=== PATIENT | male | born 1980 | race Caucasian/White ===

== ENCOUNTER 2017-06-20 18:49 | Inpatient (IN) | payer MEDICARE, MEDICAID ==
[2017-06-20 18:50] VITALS: BMI 26.9
--- NOTE | 2017-06-20 19:15 | C.PDOC ---
History Of Present Illness 36 year old male was sent to the ER by police for a psych evaluation. he has a past history of Undifferentiated Schizophrenia and attends [facility]. He states he is compliant with his medication. Patient states a man who is the gun dealer who sold his father the gun he used to kill himself after his mother was murdered has been following him and harassing him. He states he called the police who said they would investigate but sent him to the ER for an evaluation in the meantime. Patient states he is not paranoid and denies any physical complaints. Time Seen by Provider: 06/20/17 19:02 Chief Complaint (Nursing): Psychiatric Evaluation History Per: Patient History/Exam Limitations: no limitations Onset/Duration Of Symptoms: Days Current Symptoms Are (Timing): Still Present Suicide/Self Injury Attempted (Context): None Modifying Factor(s): None Associated Symptoms: denies: Depression, Suicidal Thoughts Involuntary Hold By: None Recent travel outside of the [place]: No Past Medical History Reviewed: Historical Data, Nursing Documentation, Vital Signs Vital Signs: Last Vital Signs Temp 98.4 F 06/20/17 18:52 Pulse 93 H 06/20/17 18:52 Resp 18 06/20/17 18:52 BP 125/88 06/20/17 18:52 Pulse Ox 98 06/20/17 20:01 - Medical History PMH: Bipolar Disorder, Depression, Hypercholesterolemia, Schizophrenia - [facility] Procedures INDIVID PSYCHOTHERAP NEC (11/09/13) OTHER GROUP THERAPY (11/09/13) PSYCHIAT DRUG THERAP NEC (09/23/13) Family History: States: Unknown Family Hx - Social History Hx Tobacco Use: Yes Hx Alcohol Use: No Hx Substance Use: No - Immunization History Hx Tetanus Toxoid Vaccination: No Hx Influenza Vaccination: Yes (2017) Hx Pneumococcal Vaccination: No Review Of Systems Constitutional: Negative for: Fever, Chills Cardiovascular: Negative for: Chest Pain, Palpitations Respiratory: Negative for: Cough, Shortness of Breath Gastrointestinal: Negative for: Nausea, Vomiting Psych: Negative for: Depression, Suicidal ideation Physical Exam - Physical Exam Appears: Non-toxic, No Acute Distress Skin: Normal Color, Warm, Dry Head: Atraumatic, Normacephalic Eye(s): bilateral: Normal Inspection Oral Mucosa: Moist Chest: Symmetrical, No Tenderness Cardiovascular: Rhythm Regular Respiratory: Normal Breath Sounds, No Rales, No Rhonchi, No Wheezing Gastrointestinal/Abdominal: Soft, No Tenderness Neurological/Psych: Oriented x3, Normal Speech ED Course And Treatment - Laboratory Results Result Diagrams: 06/20/17 19:36 06/20/17 19:36 Lab Interpretation: No Acute Changes O2 Sat by Pulse Oximetry: 98 (Room air) Pulse Ox Interpretation: Normal Progress Note: Blood work and urinalysis ordered. Patient is medically cleared for psychiatric admission. Reevaluation Time: 21:53 Reassessment Condition: Unchanged (Patient agrees to inpatient psychiatric admission for uncontrolled schizophrenia) Disposition - Disposition Disposition: HOSPITALIZED Disposition Time: 21:54 Condition: STABLE - POA Present On Arrival: None - Clinical Impression Clinical Impression: Schizophrenia - Scribe Statement The provider has reviewed the documentation as recorded by the Scribe Joel Warner All medical record entries made by the Scribe were at my direction and personally dictated by me. I have reviewed the chart and agree that the record accurately reflects my personal performance of the history, physical exam, medical decision making, and the department course for this patient. I have also personally directed, reviewed, and agree with the discharge instructions and disposition.
[2017-06-20 19:39] LABS: BASO # 0.1 K/uL (0.0-0.2); BASO % 0.9 % (0.0-2.0); EOS # 0.3 K/uL (0.0-0.7); EOS % 2.1 % (0.0-4.0); HEMOGLOBIN 14.8 g/dL (12.0-18.0); LYMPH % 28.6 % (20.0-40.0); MEAN CELL VOLUME 86.1 fL (80.0-94.0); MEAN CORPUSCULAR HGB CONC 34.9 g/dL (33.0-37.0); MEAN PLATELET VOLUME 7.7 fL (7.2-11.7); MONO # 0.9 K/uL (0.0-0.8); MONO % 6.3 % (0.0-10.0); NEUT # 8.8 K/uL (1.8-7.0); NEUT % 62.1 % (50.0-75.0); RBC 4.95 Mil/uL (4.40-5.90); RED CELL DISTRIBUTION WIDTH 12.7 % (11.5-14.5); WHITE BLOOD COUNT 14.1 K/uL (4.8-10.8)
[2017-06-20 19:48] LABS: URINE BILIRUBIN NEGATIVE (NEGATIVE); URINE BLOOD NEGATIVE (NEGATIVE); URINE CLARITY Clear (Clear); URINE COLOR Colorless (YELLOW); URINE GLUCOSE (UA) NORMAL (Normal); URINE LEUKOCYTE ESTERASE NEG Leu/uL (Negative); URINE PROTEIN NEGATIVE (NEGATIVE); URINE UROBILINOGEN NORMAL mg/dL (0.2-1.0)
[2017-06-20 19:51] LABS: ALB/GLOB RATIO 1.4 (1.0-2.1); ALBUMIN 4.6 g/dL (3.5-5.0); ALT/SGPT 45 U/L (21-72); AST/SGOT 23 U/L (17-59); BLOOD UREA NITROGEN 6 mg/dL (9-20); CALCIUM 8.8 mg/dl (8.6-10.4); GFR AFRICAN-AMERICAN > 60; GFR NON-AFRICAN AMERICAN > 60
[2017-06-20 19:55] LABS: BARBITURATES, UR NEGATIVE (NEGATIVE); BENZODIAZEPINES, UR NEGATIVE (NEGATIVE); OPIATES, UR NEGATIVE (NEGATIVE); PHENCYCLIDINE, UR NEGATIVE (NEGATIVE)
--- NOTE | 2017-06-21 01:07 | PCM.BM ---
<Adelaide Orr - Last Filed: 06/21/17 01:05> Treatment Plan Problems - Problems identified on initial assessmt Paranoid delusions Date Initiated: 06/21/17 Time Initiated: 01:07 Assessment reference: NA Status: Active Anxiety Date Initiated: 06/21/17 Time Initiated: 01:09 Assessment reference: NA Status: Active Treatment assets and liabiliti Patient Assests: cooperative, ADL independent, physically healthy, cognitively intact Patient Liabilities: poor support system - Milieu Protocol Maintain good personal hygiene: daily Encourage regular showers, daily Remind patient to perform daily oral care, daily Assist patient to perform ADL's Conduct patient checks and document Observation sheet: Q15 minutes Maintain personal safety: every shift Educate patient to report safety concerns to staff, every shift Monitor environment for contraband/sharps Medication safety: Monitor for expected outcome, potential side effects: every shift, Assess barriers to learning: every shift, Assess readiness for medication education: every shift <Lissett Brice - Last Filed: 06/22/17 11:47> Family Contact Family involvement: Famliy/SO not involved - Outside Agency Agency 1 Care involvment: Following patient during stay, Information-sharing Agency contact name: [facility] - Goals for Treatment Patient goals for treatment: "I [facility] to go back to [facility]." Discharge/Continuing Care - Education Needs Education Needs: Patient Medication, Patient Coping Skills - Discharge Discharge Criteria: Tolerates medication w/o severe side effects, Reduction of target symptoms Discharge to:: [facility] - Treatment Team Participation Discussed with Family/SO: No Was Patient/Family/SO present at Treatment Team Meeting: Yes <Camryn Luna - Last Filed: 06/22/17 11:49> - Diagnosis (1) Schizophrenia Status: Acute Interventions: 06/22/17 11:49 * Assess/adjust medications daily and /or as needed * See patient on an individual basis 7x/week to assess status of hallucinations * Discuss risks, benefits, side effects and alternatives of medications *
--- NOTE | 2017-06-21 23:27 | PCM.PSYCH ---
Initial Psychiatric Evaluation - Initial Psychiatric Evaluation Type of Admission: Voluntary Legal Status: Capacity Chief Complaint (in patient's own words): I was followed by a person. History of Present Illness and Precipitating Events: Patient is a 36 years old, single, unemployed, resident of [facility], with history of schizophrenia was brought to the ER by police due to auditory hallucinations and delusions. Patient with history of schizophrenia, reported compliant with treatment. Reported he was staying at [facility] where he saw an old person who was following him for last 2-3 days. Patient called the police. Patient reported that he called the police in the past for the same person as he is following him frequently. Patient has history of more than 9 psychiatric admissions. Denied any depression, sleep or appetite problems. Denied any previous or current suicidal ideations homicidal ideations or suicidal attempts. Patient denied any substance use. Smokes 1 pack of cigarettes daily and is requesting for nicotine patch. Patient was born in [place] has high school graduation. Not working. 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 Lives in [facility], on [facility]. Never and has no children. Current Medications: Active Medications Generic Name Dose Route Start Last Admin Trade Name Freq PRN Reason Stop Dose Admin Haloperidol 5 mg 06/21/17 13:45 Haldol PO Q6 PRN Agitation Hydroxyzine HCl 50 mg 06/20/17 23:32 06/21/17 09:47 Atarax PO 50 mg Q6 PRN Administration Anxiety Ibuprofen 400 mg 06/21/17 13:46 Motrin Tab PO Q6 PRN Pain, moderate (4-7) Nicotine 1 patch 06/21/17 10:00 06/21/17 09:47 Nicoderm Cq TD 1 patch DAILY MIMI Administration Risperidone 1 mg 06/21/17 18:00 06/21/17 17:16 Risperdal Tab PO 1 mg BID MIMI Administration Trazodone HCl 50 mg 06/20/17 23:30 06/21/17 21:21 Desyrel PO 50 mg HS PRN Administration Insomnia Past Psychiatric History - Past Psychiatric History Previous Treatment History: Inpatient History of Abuse: None reported History of ETOH/Drug Use: See HPI History of Family Illness: None report Pertinent Medical Hx (Current Medical&Sleep Prob, Allergies): Allergies Allergy/AdvReac Type Severity Reaction Status Date / Time No Known Allergies Allergy Verified 06/20/17 18:56 Benztropine [Cogentin] 1 mg PO DAILY 02/02/15 Risperidone [RisperDAL Consta] 37.5 mg IM 02/02/15 Risperidone [Risperdal] 3 mg PO DAILY 02/02/15 Simvastatin [Simvastatin] 40 mg PO DAILY 02/02/15 Review of Systems - Psychiatric Psychiatric: Auditory Hallucinations, Paranoia Mental Status Examination - Personal Presentation Personal Presentation: Looks stated age - Affect Affect: Blunted - Motor Activity Motor Activity: Calm
--- NOTE | 2017-06-23 14:45 | PCM.PYCHPN ---
Psychiatric Progress Note - Psychiatric Progress Note Patient seen today, length of contact: 15 min Patient Chief Complaint: I am feeling rayray Problems Identified/Issues Discussed: Patient seen and evaluated, chart reviewed and discussed with the nurse. Patient remained disorganized and internally preoccupied. Patient remained isolated, confined and withdrawn. Patient still appears paranoid and delusional. As per the staff last night he was talking to himself and yelling in his room. He is taking medication and denies any side effects. Symptoms are improving but he needs more time for stabilization. Supportive therapy and psychoeducation were given. Medication Change: Yes (increase risperdal) Medical Record Reviewed: Yes Mental Status Examination - Cognitive Function Orientation: Person, Place, Situation, Time Memory: Intact Attention: Poor Concentration: Poor Association: Loose Fund of Knowledge: Poor - Mood Mood: Anxious - Affect Affect: Blunted - Speech Speech: Soft - Formal Thought Process Formal Thought Process: Hallucinations, Delusions, Paranoia, Loosening of associations - Suicidal Ideation Suicidal Ideation: No - Homicidal Ideation Homicidal Ideation: No Goal/Treatment Plan - Goal/Treatment Plan Need for Continued Stay: Severe depression anxiety, Severe functional impairment Progress Toward Problem(s) and Goals/Treatment Plan: Schizophrenia paranoid type continuous CBT Psychoeducation Supportive therapy, group therapy, individual therapy Risperdal 2 am PO BID Cogentin 1 mg by mouth twice a day Trazodone 50 mg by mouth daily at bedtime - Smoking Cessation Smoking Cessation Initiated: No
--- NOTE | 2017-06-24 11:13 | PCM.PYCHPN ---
Psychiatric Progress Note - Psychiatric Progress Note Patient seen today, length of contact: 15 min Patient Chief Complaint: I am feeling rayray Problems Identified/Issues Discussed: Patient seen and evaluated, chart reviewed and discussed with the nurse. Patient remained isolated, confined and withdrawn. Patient still appears paranoid and delusional. Patient remained disorganized and internally preoccupied. As per the staff last night he was talking to himself. He is taking medication and denies any side effects. Symptoms are improving but he needs more time for stabilization. Supportive therapy and psychoeducation were given. Medication Change: Yes (increase risperdal, increase gabapentin) Medical Record Reviewed: Yes Mental Status Examination - Cognitive Function Orientation: Person, Place, Situation, Time Memory: Intact Attention: WNL Concentration: Poor Association: Loose Fund of Knowledge: Poor - Mood Mood: Anxious - Affect Affect: Blunted - Speech Speech: Soft - Formal Thought Process Formal Thought Process: Hallucinations, Delusions, Paranoia, Loosening of associations - Suicidal Ideation Suicidal Ideation: No - Homicidal Ideation Homicidal Ideation: No Goal/Treatment Plan - Goal/Treatment Plan Need for Continued Stay: Severe depression anxiety, Severe functional impairment Progress Toward Problem(s) and Goals/Treatment Plan: Schizophrenia paranoid type continuous CBT Psychoeducation Supportive therapy, group therapy, individual therapy Risperdal 2 mg PO daily Risperdal 3 mg PO HS Cogentin 1 mg by mouth twice a day Gabapentin 300 mg by mouth twice a day Trazodone 50 mg by mouth daily at bedtime - Smoking Cessation Smoking Cessation Initiated: No
--- NOTE | 2017-06-25 18:12 | PCM.PYCHPN ---
Psychiatric Progress Note - Psychiatric Progress Note Patient seen today, length of contact: 15 min Patient Chief Complaint: I am feeling rayray Problems Identified/Issues Discussed: Patient seen and evaluated, chart reviewed and discussed with the nurse. Patient still appears paranoid and delusional. Patient remained disorganized and internally preoccupied. Patient remained isolated, confined and withdrawn. He was found talking to himself. He is taking medication and denies any side effects. Symptoms are improving but he needs more time for stabilization. Supportive therapy and psychoeducation were given. Medication Change: Yes (increase risperdal) Medical Record Reviewed: Yes Mental Status Examination - Cognitive Function Orientation: Person, Place, Situation, Time Memory: Intact Attention: WNL Concentration: Poor Association: Loose Fund of Knowledge: Poor - Mood Mood: Anxious - Affect Affect: Blunted - Speech Speech: Soft - Formal Thought Process Formal Thought Process: Hallucinations, Delusions, Paranoia, Loosening of associations - Suicidal Ideation Suicidal Ideation: No - Homicidal Ideation Homicidal Ideation: No Goal/Treatment Plan - Goal/Treatment Plan Need for Continued Stay: Severe depression anxiety, Severe functional impairment Progress Toward Problem(s) and Goals/Treatment Plan: Schizophrenia paranoid type continuous CBT Psychoeducation Supportive therapy, group therapy, individual therapy Risperdal 2 mg PO daily Risperdal 4 mg PO HS Cogentin 1 mg by mouth twice a day Gabapentin 300 mg by mouth twice a day Trazodone 50 mg by mouth daily at bedtime - Smoking Cessation Smoking Cessation Initiated: No
--- NOTE | 2017-06-26 23:40 | PCM.PYCHPN ---
Psychiatric Progress Note - Psychiatric Progress Note Patient seen today, length of contact: 15 min Patient Chief Complaint: I am feeling little better.' Problems Identified/Issues Discussed: Patient seen and evaluated, chart reviewed and discussed with the nurse. Patient appeared more organized and less internally preoccupied. However, he remained isolated, confined and withdrawn. He still appears paranoid and delusional. He is taking medication and denies any side effects. Symptoms are improving but he needs more time for stabilization. Supportive therapy and psychoeducation were given. Medication Change: Yes (increase risperdal) Medical Record Reviewed: Yes Mental Status Examination - Cognitive Function Orientation: Person, Place, Situation, Time Memory: Intact Attention: WNL Concentration: WNL Association: Loose Fund of Knowledge: Poor - Mood Mood: Anxious - Affect Affect: Blunted - Speech Speech: Soft - Formal Thought Process Formal Thought Process: Paranoia, Loosening of associations - Suicidal Ideation Suicidal Ideation: No - Homicidal Ideation Homicidal Ideation: No Goal/Treatment Plan - Goal/Treatment Plan Need for Continued Stay: Severe depression anxiety, Severe functional impairment Progress Toward Problem(s) and Goals/Treatment Plan: Schizophrenia paranoid type continuous CBT Psychoeducation Supportive therapy, group therapy, individual therapy Risperdal 2 mg PO daily Risperdal 4 mg PO HS Cogentin 1 mg by mouth twice a day Gabapentin 300 mg by mouth twice a day Trazodone 50 mg by mouth daily at bedtime - Smoking Cessation Smoking Cessation Initiated: No
--- NOTE | 2017-06-27 16:25 | PCM.PYCHPN ---
Psychiatric Progress Note - Psychiatric Progress Note Patient seen today, length of contact: 15 min Patient Chief Complaint: I'm feeling better. Problems Identified/Issues Discussed: Patient seen, chart reviewed, case discussed with the staff. Issues related to illness and treatment were discussed with the patient. Reported compliant with treatment with no adverse affects. Reported feeling better now. Patient was walking on the floor comfortably. Mood reported as okay. Affect appropriate. Awake alert oriented 3, no delusions, no auditory or visual hallucinations, no suicidal ideations or homicidal ideations at the time of evaluation. Aftercare discussed with the patient. Medical Problems: None reported Diagnostic Results: Reviewed DSM 5 Symptoms Update: Improving with treatment Medication Change: No Medical Record Reviewed: Yes Mental Status Examination - Cognitive Function Orientation: Person, Place, Situation, Time Memory: Intact Attention: WNL Concentration: WNL Association: WN Fund of Knowledge: [facility] Decription of patient's judgement and insights: Fair - Mood Mood: Anxious - Affect Affect: Blunted - Speech Speech: Soft - Formal Thought Process Formal Thought Process: No Impairment Psychotic Thoughts and Behaviors: None - Suicidal Ideation Suicidal Ideation: No - Homicidal Ideation Homicidal Ideation: No Goal/Treatment Plan - Goal/Treatment Plan Need for Continued Stay: Remain at risks for inpatient hospitalization, Discharge may exacerbated symptoms, Severe functional impairment Progress Toward Problem(s) and Goals/Treatment Plan: Patient education Supportive therapy Continue treatment as before Estimated Date of D/C: 06/29/17 - Smoking Cessation Smoking Cessation Initiated: Yes
--- NOTE | 2017-06-28 08:00 | PCM.PYCHPN ---
Psychiatric Progress Note - Psychiatric Progress Note Patient seen today, length of contact: 15 min Patient Chief Complaint: I am feeling rayray Problems Identified/Issues Discussed: Patient seen and evaluated, chart reviewed and discussed with the nurse. Patient appears more organized. Patient remained isolated, confined and withdrawn. Patient reports improvement in the paranoid and delusional. He is taking medication and denies any side effects. Symptoms are improving but he needs more time for stabilization. Supportive therapy and psychoeducation were given. Medication Change: No Medical Record Reviewed: Yes Mental Status Examination - Cognitive Function Orientation: Person, Place, Situation, Time Memory: Intact Attention: WNL Concentration: Poor Association: WNL Fund of Knowledge: Poor - Mood Mood: Anxious - Affect Affect: Blunted - Speech Speech: Soft - Formal Thought Process Formal Thought Process: Delusions, Paranoia, Loosening of associations - Suicidal Ideation Suicidal Ideation: No - Homicidal Ideation Homicidal Ideation: No Goal/Treatment Plan - Goal/Treatment Plan Need for Continued Stay: Remain at risks for inpatient hospitalization, Discharge may exacerbated symptoms, Severe functional impairment Progress Toward Problem(s) and Goals/Treatment Plan: Schizophrenia paranoid type continuous CBT Psychoeducation Supportive therapy, group therapy, individual therapy Risperdal 2 am PO BID Cogentin 1 mg by mouth twice a day Trazodone 50 mg by mouth daily at bedtime Estimated Date of D/C: 06/29/17
[2017-06-29 06:56] VITALS: RESP 18; O2SAT 96
--- NOTE | 2017-06-29 11:35 | PCM.PYCHPN ---
Psychiatric Progress Note - Psychiatric Progress Note Patient seen today, length of contact: 15 min Patient Chief Complaint: I am feeling rayray Problems Identified/Issues Discussed: Patient seen and evaluated, chart reviewed and discussed with the nurse. Patient appears more organized. Patient reports improvement in the paranoid and delusional. He is taking medication and denies any side effects. Symptoms are improving but he needs more time for stabilization. Supportive therapy and psychoeducation were given. Medication Change: No Medical Record Reviewed: Yes Mental Status Examination - Cognitive Function Orientation: Person, Place, Situation, Time Memory: Intact Attention: WNL Concentration: WNL Association: WNL Fund of Knowledge: WN - Mood Mood: Anxious - Affect Affect: Blunted - Speech Speech: Soft - Formal Thought Process Formal Thought Process: No Impairment - Suicidal Ideation Suicidal Ideation: No - Homicidal Ideation Homicidal Ideation: No Goal/Treatment Plan - Goal/Treatment Plan Need for Continued Stay: Remain at risks for inpatient hospitalization, Discharge may exacerbated symptoms, Severe functional impairment Progress Toward Problem(s) and Goals/Treatment Plan: Schizophrenia paranoid type continuous CBT Psychoeducation Supportive therapy, group therapy, individual therapy Risperdal 2 am PO daily Risperdal 4 mg by mouth daily at bedtime Cogentin 1 mg by mouth twice a day Trazodone 50 mg by mouth daily at bedtime Estimated Date of D/C: 06/29/17
--- NOTE | 2017-06-29 13:18 | PCM.BM ---
<MigueLissett Marcano - Last Filed: 06/29/17 13:18> Treatment Plan Problems - Problems identified on initial assessmt paranoid Date Initiated: 06/21/17 Time Initiated: 01:07 Assessment reference: NA Status: Active Paranoid delusions Date Initiated: 06/21/17 Time Initiated: 01:07 Assessment reference: NA Status: Active Anxiety Date Initiated: 06/21/17 Time Initiated: 01:09 Assessment reference: NA Status: Active Treatment assets and liabiliti Patient Assests: cooperative, ADL independent, physically healthy, cognitively intact Patient Liabilities: poor support system - Milieu Protocol Maintain good personal hygiene: daily Encourage regular showers, daily Remind patient to perform daily oral care, daily Assist patient to perform ADL's Conduct patient checks and document Observation sheet: Q15 minutes Maintain personal safety: every shift Educate patient to report safety concerns to staff, every shift Monitor environment for contraband/sharps Medication safety: Monitor for expected outcome, potential side effects: every shift, Assess barriers to learning: every shift, Assess readiness for medication education: every shift Milieu Narrative: Schizophrenia paranoid type continuous CBT Psychoeducation Supportive therapy, group therapy, individual therapy Risperdal 2 am PO BID Cogentin 1 mg by mouth twice a day Trazodone 50 mg by mouth daily at bedtime Family Contact Family involvement: Famliy/SO not involved - Outside Agency Agency 1 Care involvment: Following patient during stay, Information-sharing Agency contact name: [facility] - Goals for Treatment Patient goals for treatment: "[facility] to go back to [facility]." Discharge/Continuing Care - Education Needs Education Needs: Patient Medication, Patient Coping Skills - Discharge Discharge Criteria: Tolerates medication w/o severe side effects, Reduction of target symptoms Discharge to:: [facility] - Treatment Team Participation Patient/Family/SO Statement: Schizophrenia paranoid type continuous CBT Psychoeducation Supportive therapy, group therapy, individual therapy Risperdal 2 am PO BID Cogentin 1 mg by mouth twice a day Trazodone 50 mg by mouth daily at bedtime Discussed with Family/SO: No Was Patient/Family/SO present at Treatment Team Meeting: Yes Treatment Plan Review - Problem paranoid Time Initiated: : Paranoid delusions Time Initiated: :07 Anxiety Time Initiated: 01:09 - Discharge / Continuing Care Discharge to:: [facility] Services: Partial hospital Health Needs: Medications/Rx, Recreational/Social <Sandra Bueno - Last Filed: 06/29/17 14:10> Treatment Plan Review - Problem paranoid Date Initiated: 06/29/17 Time Initiated: 14:10 Progress toward outcomes: improved Paranoid delusions Date Initiated: 06/29/17 Time Initiated: 14:10 Progress toward outcomes: resolved Anxiety Date Initiated: 06/29/17 Time Initiated: 14:10 Progress toward outcomes: improved <Camryn Luna - Last Filed: 06/30/17 10:08> - Diagnosis (1) Schizophrenia Status: Acute Interventions: 06/30/17 10:08 * Assess/adjust medications daily and /or as needed * See patient on an individual basis 7x/week to assess status of hallucinations * Discuss risks, benefits, side effects and alternatives of medications *
[2017-06-30 07:51] VITALS: BP 101/67; PULSE 76; TEMP 97.2
--- NOTE | 2017-06-30 10:10 | PCM.PYCHDC ---
Mental Status Examination - Mental Status Examination Orientation: Person, Place, Situation, Time Memory: Intact Mood: Neutral Affect: Constricted Speech: Soft Attention: WNL Concentration: WNL Association: WNL Fund of Knowledge: WNL Formal Thought Process: No Impairment Description of patient's judgement and insight: good, fair Psychotic Thoughts and Behaviors: denies any AVH Suicidal Ideation: No Current Homicidal Ideation?: No Discharge Summary - Discharge Note Reason for Hospitalization: Patient is a 36 years old, single, unemployed, resident of [facility], with history of schizophrenia was brought to the ER by police due to auditory hallucinations and delusions. Patient with history of schizophrenia, reported compliant with treatment. Reported he was staying at [facility] where he saw an old person who was following him for last 2-3 days. Patient called the police. Patient reported that he called the police in the past for the same person as he is following him frequently. Patient has history of more than 9 psychiatric admissions. Denied any depression, sleep or appetite problems. Denied any previous or current suicidal ideations homicidal ideations or suicidal attempts. Patient denied any substance use. Smokes 1 pack of cigarettes daily and is requesting for nicotine patch. Patient was born in [place] has high school graduation. Not working. His last job was in a [employer] in 2005. Lives in [facility], on [facility]. Never and has no children. Consultations:: List each consultation separately and include: 1. Reason for request. 2. Findings. 3. Follow-up Summary of Hospital Course include:: 1. Description of specific treatment plan utilized for patients during their course of treatmen. 2. Summarize the time- course for resolution of acute symptoms and/or regressed behaviors. 3. Describe issues identified and worked on during hospitalization. 4. Describe medication utilized. 5. Describe medical problems identified and treated. 6. Reassessment of suicide risk Summary of Hospital Course: During the course of his stay, patient (pt) started progressively improving and he no longer remained irritable, depressed, Paranoid and suicidal. His mood and paranoia were improved and he started attending groups and meetings and started socializing. Patient denied any feelings of hopelessness, helplessness, and worthlessness, denied any problem with the sleep or appetite, denied suicidal ideation or homicidal ideation. Pt denied any auditory or visual hallucinations. Some changes were made in his current medications and patient was discharged on following medications. He tolerated these medications very well and denied any side effects. CBT and LA were used. Pt to follow up with Serv. - Diagnosis (1) Schizophrenia Status: Acute - Final Diagnosis (DSM 5) Condition upon Discharge: STABLE DSM 5: Schizophrenia paranoid type continuous Disposition: HOME/ ROUTINE Follow-up Treatment Plan: Education: Pt was educated and counseled about the risks and benefits of taking and not taking medications. Pt was educated and counseled about the risks of drinking and abusing drugs. Pt was educated and counseled to go to the ER or call 911 if pt develop suicidal ideation or homicidal ideation, worsening of symptoms or severe side effects of the meds. Prescriptions/Medication Reconciliation: Benztropine [Cogentin] 1 mg PO BID #60 tab Gabapentin [Neurontin] 300 mg PO BID #60 cap risperiDONE [RisperDAL Tab] 2 mg PO DAILY #30 tab risperiDONE [RisperDAL Tab] 4 mg PO HS #30 tab traZODone [Desyrel] 50 mg PO HS PRN #30 tab PRN Reason: Insomnia - Smoking Cessation Smoking Cessation Medication prescribed: No - Antipsychotic Medications Pt discharged on 2 or more routine antipsychotic medications: No
== END 2017-06-30 13:20 | disposition home or self-care (01) | DRG 885 ==
LOC: C.ER 18:49 → C.9E 21:52 → C.5E 22:21
PROC: GZHZZZZ Group Psychotherapy (ICD-10-PCS; principal; 2017-06-20)
PROC: GZ58ZZZ Individual Psychotherapy, Cognitive-Behavioral (ICD-10-PCS; 2017-06-20)
PROC: GZ56ZZZ Individual Psychotherapy, Supportive (ICD-10-PCS; 2017-06-20)
DX: F20.0 Paranoid schizophrenia (principal); F17.210 Nicotine dependence, cigarettes, uncomplicated